=== PATIENT | male | born 1975 | race Caucasian/White ===

== ENCOUNTER 2021-05-20 04:15 | Emergency (ER) | payer BC ==
[~2021-05-20] VITALS: Ht 170.2 cm; Wt 99.8 kg
--- NOTE | 2021-05-20 04:35 | NUR ---
Dr. Dodd at bedside for MSE.
--- NOTE | 2021-05-20 04:42 | NUR ---
Patient discharged to home in stable condition. Written and verbal after care instructions given. Patient verbalizes understanding of instructions. Stressed follow up or return to ER for worsening s/s. Patient out of ER with steady gait, no acute signs of distress, VSS, all belongings taken.
[2021-05-20 04:43] VITALS: BP 147/72
== END 2021-05-20 05:02 | disposition home or self-care (01) ==
LOC: ER 04:29
DX: Z02.89 Encounter for other administrative examinations (principal); R03.0 Elevated blood-pressure reading, without diagnosis of hypertension
CPT/HCPCS: A4663